=== PATIENT | female | born 1985 | race Caucasian/White ===

== ENCOUNTER 2018-09-11 20:28 | Emergency (ER) | payer MEDICAID ==
[2018-09-11 21:47] LABS: ADD MAN DIFF? NO
[2018-09-11 21:49] LABS: BASOPHIL # 0.1 10^3/ul (0.0-0.1); BASOPHILS % 0.5 % (0.0-2.0); EOSINOPHILS # 0.2 10^3/ul (0.0-0.5); EOSINOPHILS % 1.6 % (0.0-7.0); HEMATOCRIT 40.6 % (37.0-47.0); LYMPHOCYTES # 3.1 10^3/ul (0.8-2.9); LYMPHOCYTES % 32.8 % (15.0-51.0); MEAN CORPUSCULAR HEMOGLOBIN 32.1 pg (29.0-33.0); MEAN CORPUSCULAR HGB CONC 34.5 g/dl (32.0-37.0); MEAN CORPUSCULAR VOLUME 93.1 fl (82.0-101.0); MEAN PLATELET VOLUME 9.4 fl (7.4-10.4); MONOCYTE # 0.5 10^3/ul (0.3-0.9); MONOCYTES % 5.7 % (0.0-11.0); NEUTROPHIL # 5.5 10^3/ul (1.6-7.5); NEUTROPHILS % 59.1 % (39.0-77.0); PLATELET COUNT 190 10^3/UL (140-415); RED BLOOD COUNT 4.36 10^6/ul (4.20-5.40); RED CELL DISTRIBUTION WIDTH 12.7 % (11.5-14.5)
[2018-09-11 21:49] LABS: WHITE BLOOD COUNT 9.3 10^3/ul (4.8-10.8)
[2018-09-11 22:05] LABS: ADD UMIC YES; UR ASCORBIC ACID NEGATIVE (NEGATIVE); UR BILIRUBIN (Dip) NEGATIVE (NEGATIVE); UR BLOOD (Dip) 3+ mg/dL (NEGATIVE); UR CLARITY CLEAR (CLEAR); UR COLOR STRAW (YELLOW); UR GLUCOSE (Dip) NEGATIVE (NEGATIVE); UR KETONES (Dip) NEGATIVE (NEGATIVE); UR LEUKOCYTE ESTERASE (Dip) NEGATIVE Leu/ul (NEGATIVE); UR NITRITE (Dip) NEGATIVE (NEGATIVE); UR RBC 16 /HPF (0-5); UR SPECIFIC GRAVITY (Dip) 1.008 (1.003-1.030); UR SQUAMOUS EPITHELIAL CELL FEW /HPF (FEW); UR TOTAL PROTEIN (Dip) NEGATIVE (NEGATIVE); UR UROBILINOGEN (Dip) NEGATIVE (NEGATIVE); UR WBC 14 /HPF (0-5)
== END 2018-09-11 23:40 | disposition home or self-care (01) ==
LOC: FTE 20:28
DX: O20.0 Threatened abortion (principal); R10.2 Pelvic and perineal pain; Z3A.12 12 weeks gestation of pregnancy
CPT/HCPCS: 36415; 76801; 76817; 81001; 84702; 85025; 86900; 86901; 87086; 99284-25

== ENCOUNTER 2019-02-20 12:43 | Outpatient (CLI) | payer MEDICAID ==
[2019-02-20 13:26] LABS: ADD UMIC YES; UR ASCORBIC ACID NEGATIVE (NEGATIVE); UR BACTERIA FEW /HPF (NONE SEEN); UR BILIRUBIN (Dip) NEGATIVE (NEGATIVE); UR BLOOD (Dip) NEGATIVE (NEGATIVE); UR CLARITY CLEAR (CLEAR); UR COLOR YELLOW (YELLOW); UR GLUCOSE (Dip) NEGATIVE (NEGATIVE); UR KETONES (Dip) TRACE mg/dL (NEGATIVE); UR LEUKOCYTE ESTERASE (Dip) 3+ Leu/ul (NEGATIVE); UR NITRITE (Dip) NEGATIVE (NEGATIVE); UR RBC 1 /HPF (0-5); UR SPECIFIC GRAVITY (Dip) 1.011 (1.003-1.030); UR SQUAMOUS EPITHELIAL CELL FEW /HPF (FEW); UR TOTAL PROTEIN (Dip) NEGATIVE (NEGATIVE); UR UROBILINOGEN (Dip) NEGATIVE (NEGATIVE); UR WBC 2 /HPF (0-5)
== END 2019-02-20 15:00 | disposition home or self-care (01) ==
LOC: OBT 12:43 → L-D 12:43 → OBT 15:00
DX: O60.03 Preterm labor without delivery, third trimester (principal); Z3A.35 35 weeks gestation of pregnancy
CPT/HCPCS: 76815; 76818; 81001; 87086

== ENCOUNTER 2019-03-09 12:41 | Inpatient (IN) | payer MEDICAID ==
[2019-03-09] MEDS ORDERED: LACTATED RINGER'S 1,000 ML IV (15:51)
[2019-03-09] MEDS ORDERED: OXYTOCIN 30 UNITS/LR 500 ML IV ×3 (16:00→19:00)
[2019-03-09] MEDS ORDERED: CARBOPROST 250 MCG INJ IM ×2 (16:00→19:00)
[2019-03-09] MEDS ORDERED: METHYLERGONOVINE 0.2 MG INJ IM ×2 (16:00→19:00)
[2019-03-09] MEDS ORDERED: MISOPROSTOL 200 MCG TAB PR ×2 (16:00→19:00)
[2019-03-09] MEDS ORDERED: CEFAZOLIN 2 GM/50 ML (PMX) 50 ML IVPB (16:28)
[2019-03-09] MEDS ORDERED: AMPICILLIN 2 GM/NS (PMX) 100 ML (16:28)
[2019-03-09] MEDS: FAMOTIDINE 20 MG INJ IV (16:31)
[2019-03-09] MEDS: METOCLOPRAMIDE 10 MG INJ IV (16:31)
[2019-03-09] MEDS: LACTATED RINGER'S 1,000 ML IV (16:31)
[2019-03-09] MEDS: AMPICILLIN 2 GM/NS (PMX) 100 ML IVPB (16:31)
[2019-03-09] MEDS: CITRIC ACID/NA CITRATE 30 ML CUP PO (16:31)
[2019-03-09 16:33] LABS: ADD MAN DIFF? NO
[2019-03-09 16:38] LABS: BASOPHIL # 0.1 10^3/ul (0.0-0.1); BASOPHILS % 0.4 % (0.0-2.0); EOSINOPHILS # 0.2 10^3/ul (0.0-0.5); EOSINOPHILS % 1.5 % (0.0-7.0); HEMATOCRIT 37.9 % (37.0-47.0); HEMOGLOBIN 12.7 g/dl (12.0-16.0); LYMPHOCYTES # 2.1 10^3/ul (0.8-2.9); LYMPHOCYTES % 18.7 % (15.0-51.0); MEAN CORPUSCULAR HEMOGLOBIN 31.2 pg (29.0-33.0); MEAN CORPUSCULAR HGB CONC 33.5 g/dl (32.0-37.0); MEAN CORPUSCULAR VOLUME 93.1 fl (82.0-101.0); MEAN PLATELET VOLUME 9.7 fl (7.4-10.4); MONOCYTE # 0.8 10^3/ul (0.3-0.9); MONOCYTES % 7.1 % (0.0-11.0); NEUTROPHIL # 8.1 10^3/ul (1.6-7.5); NEUTROPHILS % 71.7 % (39.0-77.0); PLATELET COUNT 183 10^3/UL (140-415); RED BLOOD COUNT 4.07 10^6/ul (4.20-5.40); RED CELL DISTRIBUTION WIDTH 13.8 % (11.5-14.5)
[2019-03-09 16:38] LABS: WHITE BLOOD COUNT 11.3 10^3/ul (4.8-10.8)
[2019-03-09 16:58] LABS: INR 0.85; PROTIME 11.7 Sec (11.9-14.9); PT RATIO 0.9
[2019-03-09 16:59] LABS: PARTIAL THROMBOPLASTIN TIME 26.8 Sec (23.0-35.0)
[2019-03-09] MEDS ORDERED: morphine SULFATE/PF (10 MG/10 ML) INJ (17:16)
[2019-03-09 17:28] LABS: HEPATITIS B SURFACE ANTIGEN NEGATIVE (NEGATIVE)
[2019-03-09] MEDS ORDERED: PHENYLephrine (100 MCG/ML) 10ML SYG (17:29)
[2019-03-09] MEDS ORDERED: ONDANSETRON 4 MG INJ (17:29)
[2019-03-09] MEDS ORDERED: EPHEDrine 25 MG/5 ML SYG (17:56)
[2019-03-09] MEDS ORDERED: EPHEDrine SULFATE 50 MG/5 ML SYG IV (18:00)
[2019-03-09] MEDS ORDERED: KETOROLAC 30 MG INJ IV (18:00)
[2019-03-09] MEDS ORDERED: FENTAnyl 50 MCG/ML VIAL IV ×3 (18:00)
[2019-03-09] MEDS ORDERED: ONDANSETRON 4 MG INJ IV (18:00)
[2019-03-09] MEDS ORDERED: PROCHLORPERAZINE 10 MG INJ IV (18:00)
[2019-03-09] MEDS ORDERED: HYDROmorphONE 1 MG/5 ML IV SYRINGE IV ×3 (18:00)
[2019-03-09] MEDS ORDERED: MEPERIDINE 25 MG INJ IV (18:00)
[2019-03-09] MEDS ORDERED: MIDAZOLAM 1 MG/ML 2 ML INJ (18:02)
[2019-03-09] MEDS: OXYTOCIN 30 UNITS/LR 500 ML IV (18:38)
[2019-03-09] MEDS ORDERED: HYDROmorphONE 0.5 MG/0.5 ML SYG IV ×2 (19:00)
[2019-03-09] MEDS ORDERED: NACL 0.9% 3 ML SYG IV (19:00)
[2019-03-09] MEDS ORDERED: ZOLPIDEM 5 MG TAB PO (19:00)
[2019-03-09] MEDS ORDERED: NALOXONE (0.4 MG/ML) INJ IV (19:00)
[2019-03-09] MEDS: DIPHENHYDRAMINE 50 MG INJ IV (20:39)
[2019-03-09] MEDS: CEFAZOLIN 2 GM/50 ML (PMX) 50 ML IVPB ×2 (21:41→23:35)
[2019-03-09] MEDS: ONDANSETRON 4 MG INJ IV (23:47)
[2019-03-10] MEDS: OXYTOCIN 30 UNITS/LR 500 ML IV (01:58)
[2019-03-10] MEDS: DIPHENHYDRAMINE 50 MG INJ IV (06:09)
[2019-03-10] MEDS: CEFAZOLIN 2 GM/50 ML (PMX) 50 ML IVPB ×2 (06:53→14:26)
[2019-03-10] MEDS: KETOROLAC 30 MG INJ IV ×2 (08:31→17:12)
[2019-03-10 08:36] LABS: ADD MAN DIFF? NO
[2019-03-10 08:44] LABS: WHITE BLOOD COUNT 12.7 10^3/ul (4.8-10.8)
[2019-03-10 08:44] LABS: BASOPHILS % 0.3 % (0.0-2.0); EOSINOPHILS # 0.1 10^3/ul (0.0-0.5); EOSINOPHILS % 0.6 % (0.0-7.0); HEMATOCRIT 32.1 % (37.0-47.0); HEMOGLOBIN 10.8 g/dl (12.0-16.0); LYMPHOCYTES # 2.1 10^3/ul (0.8-2.9); LYMPHOCYTES % 16.8 % (15.0-51.0); MEAN CORPUSCULAR HEMOGLOBIN 31.6 pg (29.0-33.0); MEAN CORPUSCULAR HGB CONC 33.6 g/dl (32.0-37.0); MEAN CORPUSCULAR VOLUME 93.9 fl (82.0-101.0); MEAN PLATELET VOLUME 9.8 fl (7.4-10.4); MONOCYTE # 0.9 10^3/ul (0.3-0.9); NEUTROPHIL # 9.5 10^3/ul (1.6-7.5); NEUTROPHILS % 74.7 % (39.0-77.0); PLATELET COUNT 162 10^3/UL (140-415); RED BLOOD COUNT 3.42 10^6/ul (4.20-5.40)
[2019-03-10 16:31] LABS: RAPID PLASMA REAGIN NONREACTIVE (NR)
[2019-03-10] MEDS ORDERED: IBUPROFEN 600 MG TAB PO (18:00)
[2019-03-10] MEDS: FERROUS SULFATE (EC) 325 MG TAB PO (21:09)
[2019-03-10] MEDS: OXYCODONE/ACETAMINOPHEN (5/325) TAB PO (21:40)
[2019-03-11] MEDS: OXYCODONE/ACETAMINOPHEN (5/325) TAB PO ×4 (03:37→21:22)
[2019-03-11] MEDS: FERROUS SULFATE (EC) 325 MG TAB PO ×2 (08:13→21:20)
[2019-03-11] MEDS: LANOLIN HPA 1 PKT TOP (16:53)
[2019-03-12] MEDS: OXYCODONE/ACETAMINOPHEN (5/325) TAB PO ×2 (04:06→09:56)
[2019-03-12] MEDS: FERROUS SULFATE (EC) 325 MG TAB PO (09:50)
== END 2019-03-12 12:35 | disposition home or self-care (01) | DRG 785 ==
LOC: OBT 12:41 → L-D 12:41 → OBT 15:45 → L-D 15:45 → PP1 20:47
PROVIDERS: Obstetrics & Gynecology
PROC: 10D00Z1 Extraction of Products of Conception, Low, Open Approach (ICD-10-PCS; principal; 2019-03-10)
PROC: 0UL70ZZ Occlusion of Bilateral Fallopian Tubes, Open Approach (ICD-10-PCS; 2019-03-10)
DX: O34.211 Maternal care for low transverse scar from previous cesarean delivery (principal); Z3A.38 38 weeks gestation of pregnancy; Z37.0 Single live birth; Z30.2 Encounter for sterilization
CPT/HCPCS: 76815; 76818; 85025; 85610; 85730; 86592; 86850; 86900; 86901; 87340; 88302; 99464